=== PATIENT | female | born 1985 | race Caucasian/White ===

== ENCOUNTER → 2018-06-30 | Outpatient (CLI) | payer OTHER ==
[~2018-06-30] MED LIST: FLU60SYR36 IM; PREN-127 PO
[2018-06-30 11:40] LABS: PLATELET COUNT, AUTOMATED 289 K/uL (150-450)
== END ==
LOC: LAB 08:39
PROVIDERS: ATTEND Obstetrics & Gynecology
DX: Z34.91 Encounter for supervision of normal pregnancy, unspecified, first trimester (principal)
CPT/HCPCS: 36415; 81001; 85025; 86592; 86703; 86762; 86850; 86900; 86901; 87088; 87340

== ENCOUNTER → 2018-10-16 | Outpatient (CLI) | payer OTHER ==
--- NOTE | 2018-10-16 13:47 | RADIOLOGY IMAGING REPORT ---
FACILITY: [facility] - [place] PATIENT NAME: Amanda Magaña : 1985 MR: [id number] V: [id number] EXAM DATE: ORDERING PHYSICIAN: PHIL BLANC TECHNOLOGIST: Location: [facility] - [place] Patient: Amanda Magaña : 1985 Visit/Account:[id number] Date of Sevice: 10/16/2018 EXAMINATION: Ultrasound transabdominal OB > 14 weeks with anatomic evaluation HISTORY: 20 weeks survey COMPARISON: None. TECHNIQUE: Transabdominal imaging was performed for assessment of the fetus and maternal pelvic structures. T ransvaginal imaging was not performed. FINDINGS: Placenta: Posterior without previa. Uterus: Gravid, otherwise normal Cervix: Long and closed. Maternal Ovaries: Not visualized. Maternal and other adnexa findings: Not visualized Intrauterine gestations: One. presentation: Variable heart rate: Normal and regular at 158 bpm Amniotic fluid index: 12.7 cm Largest amniotic fluid pocket: 3.89 cm Gestational Parameters: BPD: 4.98 cm 21 weeks/ one days, 84% HC: 18.61 cm 21 weeks/ zero days, 77% AC: 15.44 cm 20 weeks/ five days, 61% FL: 3.39 cm 20 weeks/ five days, 60% Average ultrasound age (AUA): 21 weeks/zero days, CARLOS 02/26/2019 Estimated gestational age by CARLOS: 20 weeks/one days, CARLOS 03/04/2019 Estimated weight (EFW): 370 grams +/- 54 grams EFW for CARLOS: 75 percentile Anatomic Survey: Intracranial structures, 4-chamber heart, stomach, kidneys, urinary bladder, spine, 3-vessel cord and cord insertion are unremarkable. Two upper and two lower extremities visualized. Cardiac ventricula r outflow tracts, palate and lips are unremarkable in appearance. IMPRESSION: Single viable fetus in varied presentation with an estimated gestational age by measurem ents of 21 weeks and zero days. Estimated gestational age by LMP is 20 weeks and one day. Estimated weight 370 g consistent with the 75th percentile Report Dictated By: Shreya Dick MD at 10/16/2018 1:33 PM Report E-Signed By: Shreya Dick MD at 10/16/2018 1:42 PM WSN:[email or web address]
== END ==
LOC: RAD 07:59
PROVIDERS: ATTEND Obstetrics & Gynecology
DX: Z02.9 Encounter for administrative examinations, unspecified (principal)

== ENCOUNTER → 2018-12-14 | Outpatient (CLI) | payer OTHER ==
[~2018-12-14] MED LIST changes: +DIPH0.5S2 IM
[2018-12-14 09:46] LABS: PLATELET COUNT, AUTOMATED 263 K/uL (150-450)
== END ==
LOC: LAB 08:42
PROVIDERS: ATTEND Obstetrics & Gynecology
DX: Z34.92 Encounter for supervision of normal pregnancy, unspecified, second trimester (principal)
CPT/HCPCS: 36415; 82950; 85025

== ENCOUNTER → 2019-02-01 | Outpatient (CLI) | payer OTHER ==
--- NOTE | 2019-02-01 10:02 | RADIOLOGY IMAGING REPORT ---
FACILITY: [facility] PATIENT NAME: Amanda Magaña : 1985 MR: [id number] V: [id number] EXAM DATE: ORDERING PHYSICIAN: PHIL BLANC TECHNOLOGIST: Location: [facility] - [place] Patient: Amanda Magaña : 1985 Visit/Account:[id number] Date of Sevice: 02/01/2019 [facility] [place] HISTORY: Size greater than dates growth and AFT COMPARISON: 10/16/2018 FINDINGS: Intrauterine gestations: 1 presentation: Vertex heart rate: 129 (bpm Amniotic fluid volume: UNRULY 9.9 cm; Largest amniotic fluid pocket 4.8 cm Placenta: Posterior fundal No placenta previa or retroplacental hemorrhage. Uterus: Gravid, otherwise normal Maternal adnexa: Negative Cervix: Closed Gestational Parameters: BPD: 9 cm; 36 weeks/ 4 days/80th percentile HC: 32.1 cm; 36 weeks/ 2 days/33rd percentile AC: 32.6 cm; 36 weeks/ 4 days/83rd percentile FL: 7.1 cm; 36 weeks/ 5 days/70th percentile Average ultrasound age (AUA): 36 weeks/ 4 days Estimated weight (EFW): 2959 grams +/- 432 grams. 75th percentile IMPRESSION: 1. IUP of 36 weeks four days. CARLOS of 02/25/2019. This correlates well with the previous ultrasound on 10/16/2018 that had an CARLOS calculated at 02/26/2019 . Had fetus has remained in the 75th percentile since the study from 10/16/2018 Report Dictated By: Chava Fraire MD at 02/01/2019 9:47 AM Report E-Signed By: Chava Fraire MD at 02/01/2019 9:54 AM WSN:[email or web address]
== END ==
LOC: RAD 08:21
PROVIDERS: ATTEND Obstetrics & Gynecology
DX: O26.843 Uterine size-date discrepancy, third trimester (principal); Z3A.36 36 weeks gestation of pregnancy

== ENCOUNTER 2019-02-08 16:28 | Inpatient (IN) | payer OTHER ==
[~2019-02-08] VITALS: Ht 177.8 cm; Wt 100.2 kg
[2019-02-20 17:49] VITALS: BP 136/78; Ht 177.8 cm; Wt 100.2 kg
[2019-02-20] MEDS ORDERED: FAMOTIDINE(*) 20MG/50ML PREMIX 50 ML IVPB PRN (19:43)
[2019-02-20] MEDS ORDERED: OXYTOCIN 30 UNIT/NS 500 ML 500 ML IV PRN ×2 (19:43→23:21)
[2019-02-20] MEDS ORDERED: LIDOCAINE 1% LOCAL 300 MG/30ML INJ PRN (19:45)
[2019-02-20] MEDS ORDERED: fentaNYL CITR 100 MCG/2 ML AMP IVP PRN (19:45)
[2019-02-20] MEDS ORDERED: LIDOCAINE/SOD BICARB 8.4% SYR SC PRN (19:45)
[2019-02-20] MEDS ORDERED: METOCLOPRAMIDE 10 MG/2 ML SDV IVP PRN (19:45)
[2019-02-20] MEDS ORDERED: ACETAMINOPHEN 325 MG TAB PO PRN (19:50)
[2019-02-20] MEDS ORDERED: BUPIVACAINE 0.25% MPF INJ EPI PRN (19:50)
[2019-02-20] MEDS ORDERED: FENTANYL/ROPIVACAINE 100 ML BAG EPI PRN (19:50)
[2019-02-20] MEDS ORDERED: ONDANSETRON 4 MG/2 ML VIAL IVP PRN (19:50)
[2019-02-20] MEDS ORDERED: LIDOCAINE/PF 2% 200MG/10ML AMP 200 MG/10 ML AMPUL EPI PRN (19:50)
[2019-02-20] MEDS ORDERED: LIDO/EPI 2% MPF 1:200,000 20ML EPI PRN (19:50)
[2019-02-20] MEDS ORDERED: BUPIVACAINE 0.5% INJ 30ML VIAL EPI PRN (19:50)
[2019-02-20] MEDS ORDERED: fentaNYL CITR 100 MCG/2 ML AMP IT PRN (19:50)
[2019-02-20] MEDS: LR(*) 1000 ML BAG 1,000 ML IV SCH ×2 (20:17→21:27)
[2019-02-20 20:35] LABS: PLATELET COUNT, AUTOMATED 216 K/uL (150-450)
--- NOTE | 2019-02-20 20:35 | History & Physical ---
History of Present Illness Age of Patient: 33 : 2 Para or TPAL: 1 EDC per LMP: Mar 04, 2019 Estimated Gestational Age: 38.2 Chief Complaint Pt reports that contractions started at about 24 hours ago, but became strong and regular at 2pm today.. She reports good FM no LOF or VB. She denies STAFFORD, vision changes and RUQ pain. She had a planned IOL for Tuesday, so she is very excited to have gone into labor on her own. She is requesting and epidural and AROM after. History Patient's Blood Type: A Positive Rubella Status: Immune Group B Strep Screen: Negative Allergies: Coded Allergies: Penicillins (Unverified Allergy, Intermediate, HIVES, 06/30/18) Uncoded Allergies: metal (Allergy, Unknown, 03/30/18) Social History: Denies etoh, smoking and drug use including marijuana Family History: FH: cancer FATHER paternal grandfather FH: diabetes mellitus paternal grandfather FH: heart disease paternal grandmother FH: hypertension paternal grandfather maternal grandfater paternal grandmother maternal grandmother FH: stroke maternal grandfater Med Rec Home Meds Reported Medications Vits W-Ca,Fe,Fa(<1MG) ( VITAMINS) 1 Each Tablet, 1 EACH PO DAILY, TAB 06/30/18 Review of Systems Eyes: No Vision Change Cardiovascular: No Chest Pain Respiratory: No Shortness of Breath Gastrointestinal: No Nausea, No Vomiting, No Diarrhea, No Constipation; Abdominal Pain (uterine contractions) Genitourinary: No Dysuria Psychiatric: No Depression, No Anxiety Exam General Exam Vital Signs Vital Signs Date Time Temp Pulse Resp B/P (MAP) Pulse Ox O2 Delivery O2 Flow Rate FiO2 02/20/19 17:49 97.3 91 18 136/78 (97) 94 Room Air General Apperance: Alert/Awake/No Acute Distress Neuro: No Gross deficits Eyes: Normal Extraocular Movement & Vison, PERRLA ENT: Normal Cardiovascular: Regular Rate and Rhythm Respiratory: No Respiratory Distress Abdomen: Soft, Non-Tender, Non-Distended, Gravid - Non-Tender, RUQ Non-Tender : Normal Musculoskeletal: No Weakness/Pain Extremities: No Cyanosis,Clubbing or Edema Integumentary: Skin Intact without Lesions or Rash Psychological: Alert & Oriented X3, Appropriate Mood & Affect Cervical Dialation: 5 Cervical Effacement (%): 80 Cervical Consistency: Soft Cervical Position: Posterior Station: -2 Presentation: Vertex Uterine Contractions(Q min): 4 Uterine Contraction Strength: Moderate UC Resting Tone: Soft Fetus Feeling Movement?: Yes Heart Tones: 125 Heart Tone Variabilty: Moderate FHT Accelerations: Present, 15X15 FHT Decelerations: None Medical Decision Making Data Points Result Diagram: 02/20/192011 VTE Prophylasis: Adult Pharmacological Contraindicati: Pt at Low Risk for VTE Mechanical Contraindications: Pt at Low Risk for VTE Assessment and Plan Hospital Day: 1 PERFUMER Assessment: Stable PERFUMER Plan: Routine Labor Care Problems: (1) Uterine contractions at greater than 20 weeks of gestation Onset Date: ~ 02/15/2019 Status: Acute Assessment & Plan: MARY is a 33 y.o. at 38w2d wks with an Estimated Date of Delivery: 03/04/19 dated by LMP and first trimester US Labor state: Approaching active labor with adequate cervical change in 2 hours from observation status. Plan to admit to L&D for labor. Start IV, and draw labs . Pt requesting an epidural now. PURCHASING MANAGER/SALES called and aware. Pt requesting AROM after epidural placement. Reviewed R/B/A with patient and and they desire AROM to progress labor. Encourage extreme lateral positions with the peanut ball to encourage descent after epidural and AROM well-being: Category I FHT: Continuous monitoring for epidural Maternal well-being: VSS, normotensive and afebrile, membranes intact PNL: GBS neg, Type/Rh A+, rubella immune Pain Management: Plans for and requesting epidural Feed: Breast c/b: * Hx macrosomia baby at 9lbs 12oz with VAVD and 3rd degree laceration. At 36 weeks this baby measuring 76%tile * Had steroids at 29 weeks for PTL * ASCUS +HR HPV: Colpo showed CIN1-2 at 12 weeks. Will plan to repeat colpo with BX Anticipate labor progression and , re-evaluate in 2-3 hours or prn PHIL BLANC CNM Feb 20, 2019 20:35
[2019-02-20] MEDS ORDERED: ePHEDrine 25 MG/5 ML DISP.SYR IVP ONE ×2 (20:51→22:44)
--- NOTE | 2019-02-20 21:38 | Anesthesia OB Pre-Anes Eval ---
History of Present Illness Anesthesia Start Date: Feb 20, 2019 Anesthesia Start Time: 20:49 OB Anesthesia Diagnosis: spontaneous labor EDC: Mar 04, 2019 : 2 Para: 1 Vital Signs: Epidural anesthesia risks, complications and benefits explained to patient's satisfaction for labor and vaginal delivery and/or section. Vital Signs Date Time Temp Pulse Resp B/P (MAP) Pulse Ox O2 Delivery O2 Flow Rate FiO2 02/20/19 17:49 97.3 91 18 136/78 (97) 94 Room Air Pain Ratin Heart Tones: 132 Height (Inches): 70.00 Weight (Pounds): 221 BMI (kg/m2): 32 Past Medical History Medical History: no pertinent history Surgical History: other ([place] teeth) Previous Anesthesia: general, epidural Attended Childbirth Classes?: No Hx Anesthesia Reactions: No Hx Family Anesthesia Reaction: No Home Meds Reported Medications Vits W-Ca,Fe,Fa(<1MG) ( VITAMINS) 1 Each Tablet, 1 EACH PO DAILY, TAB 06/30/18 Allergies: Coded Allergies: Penicillins (Unverified Allergy, Intermediate, HIVES, 06/30/18) Uncoded Allergies: metal (Allergy, Unknown, 03/30/18) Anesthesia OB ROS Neurological: No migraines/headaches, No seizures, No neuropathy, No other Eyes ROS: contacts out ENT: Denies Tooth caps, Denies Loose teeth, Denies Chipped teeth, Denies Dentures, Denies Bridges, Denies Retainers, Denies Veneers, Denies Implants, Denies Tongue ring, Denies Other Pulmonary: No asthma, No smoker (pks/day/yrs), No other Airway Class: ll Cardiovascular ROS: No edema, No arrhythmia, No other GI ROS: clear liquids Last Solids Date: Feb 20, 2019 Last Solids Time: 12:00 ROS: No Herpes, No STD(s), No Liver Disease, No Renal Disease, No Other Endocrine ROS: No diabetes, No gestational diabetes, No thyroid disorder, No other Musculoskeletal ROS: low back pain; No low back injury, No scoliosis, No other ASA Classification: 2 Assessment and Plan Anesthesia Plan: LEB Assessment: Patient related that she wants to be less numb, than she was with her last epidural. She was unable to lift her legs or feel her contractions. She is vomiting occasionally, with her labor pains. She was 7/10 pain, prior to voiding, then 5/10 just prior to epidural. ABHISHEK Gale, is present and supportive. GONZALEZ ALCAZAR AGENT PRODUCER Feb 20, 2019 21:38
--- NOTE | 2019-02-20 23:25 | Labor Progress Note ---
Labor Subjective Progress Notes Subjective Pt had thought her water broke during her epidural, but she has has not leaking fluid since that time. She feels comfortable with the epidural except for some pain on the right side. Feeling Movement?: Yes Vaginal Discharge/Fluid: Clear Fluid, Small Amount Labor Pain: Mild (right side only) Neurological: No Headache Eyes: No Visual Disturbances Labor Objective Vital Signs Vital Signs Date Time Temp Pulse Resp B/P (MAP) Pulse Ox O2 Delivery O2 Flow Rate FiO2 02/20/19 17:49 97.3 91 18 136/78 (97) 94 Room Air Vaginal Discharge/Fluid?: Clear Fluid, Bloody Fluid, Small Amount Cervical Dialation: 6 Cervical Effacement (%): 70 Cervical Consistency: Moderate Cervical Position: Posterior Station: -1 Presentation: Vertex Uterine Contraction Strength: Strong UC Resting Tone: Soft Fetus Heart Tone Variabilty: Moderate FHT Accelerations: Present, 15X15 FHT Decelerations: None FHT Category: I General Exam General Appearance: Alert/Awake/No Acute Distress ENT: Normal Cardiovascular: Normal Rhythm & Peripheral Pulses Respiratory: No Respiratory Distress Abdomen: Gravid - Non-Tender, Gravid - Tender Psychological: Alert & Oriented X3, Appropriate Mood & Affect Other Result Diagram: 02/20/192011 Assessment and Plan CRYOGENICS REPAIRER Assessment: Stable CRYOGENICS REPAIRER Plan: Routine Labor Care Problems: (1) Uterine contractions at greater than 20 weeks of gestation Onset Date: ~ 02/15/2019 Status: Acute Assessment & Plan: MARY is a 33 y.o. at 38w2d wks with an Estimated Date of Delivery: 03/04/19 dated by LMP and first trimester US Labor state: Approaching active labor, but minimal cervical change since last check. Recommend AROM since no SROM earlier to progress labor. Reviewed R/B/A with patient and and they desire AROM to progress labor. Encourage ext ivis lateral positions with the peanut ball to encourage descent well-being: Category I FHT: Continuous monitoring for epidural Maternal well-being: VSS, normotensive and afebrile, AROM small clear fluid PNL: GBS neg, Type/Rh A+, rubella immune Pain Management: Comfortable with epidural Feed: Breast c/b: * Hx macrosomia baby at 9lbs 12oz with VAVD and 3rd degree laceration. At 36 weeks this baby measuring 76%tile * Had steroids at 29 weeks for PTL * ASCUS +HR HPV: Colpo showed CIN1-2 at 12 weeks. Will plan to repeat colpo with BX Anticipate labor progression and , re-evaluate in 2-3 hours or prn PHIL BLANC CNM Feb 20, 2019 23:25
[2019-02-21] VITALS (10 sets, daily range): BP systolic 96–120; BP diastolic 54–68
[2019-02-21] MEDS: LR(*) 1000 ML BAG 1,000 ML IV SCH ×2 (02:21→04:04)
--- NOTE | 2019-02-21 03:36 | Labor Progress Note ---
Labor Subjective Progress Notes Subjective Pt is feeling exhausted after pushing for 1.5 hours. She feels rectal pressure and the urge to push. She is wondering when we are getting the vacuum out since she has that with her last baby. Feeling Movement?: Yes Vaginal Discharge/Fluid: Bloody Show, Clear Fluid Labor Pain: Comfortable Neurological: No Headache Eyes: No Visual Disturbances Labor Objective Vital Signs Vital Signs Date Time Temp Pulse Resp B/P (MAP) Pulse Ox O2 Delivery O2 Flow Rate FiO2 02/20/19 17:49 97.3 91 18 136/78 (97) 94 Room Air Vaginal Discharge/Fluid?: Bloody Show, Clear Fluid Cervical Dialation: 10 Cervical Effacement (%): 100 Cervical Consistency: Soft Cervical Position: Anterior Station: +1 Presentation: Vertex Uterine Contractions(Q min): 3 Uterine Contraction Strength: Strong UC Resting Tone: Soft Fetus Estimated Weight(grams): 3500 Heart Tones: 125 Heart Tone Variabilty: Moderate FHT Accelerations: 15X15 FHT Decelerations: Variable FHT Category: II General Exam General Appearance: Alert/Awake/No Acute Distress ENT: Normal Respiratory: No Respiratory Distress Abdomen: Gravid - Non-Tender, RUQ Non-Tender : Normal Integumentary: Skin Intact without Lesions or Rash Psychological: Alert & Oriented X3, Appropriate Mood & Affect Other Result Diagram: 02/20/192011 Assessment and Plan MARKETING INFORMATION COORDINATOR Assessment: Stable MARKETING INFORMATION COORDINATOR Plan: Routine Labor Care Problems: (1) Uterine contractions at greater than 20 weeks of gestation Onset Date: ~ 02/15/2019 Status: Acute Assessment & Plan: MARY is a 33 y.o. at 38w3d wks with an Estimated Date of Delivery: 03/04/19 dated by LMP and first trimester US Labor state: Second stage labor, Pt coached on pushing and actively pushing x 1.5 hours with minimal descent in various positions. Dr. Minor notified of repetitive decelerations and now maternal exhaustion. Plan to rest for 30 minutes and then continue pushing. If no progress or baby not tolerating labor consult for an assist. well-being: Category II FHT for repetitive variables: FSE placed as difficult to monitor baby. Continuous monitoring for CAT II and epidural Maternal well-being: VSS, normotensive and afebrile, AROM at 23:04 for clear small fluid PNL: GBS neg, Type/Rh A+, rubella immune Pain Management: Comfortable with epidural Feed: Breast c/b: * Hx macrosomia baby at 9lbs 12oz with VAVD and 3rd degree laceration. At 36 weeks this baby measuring 76%tile * Had steroids at 29 weeks for PTL * ASCUS +HR HPV: Colpo showed CIN1-2 at 12 weeks. Will plan to repeat colpo post with BX Anticipate , re-evaluate in 30 minutes hours or prn PHIL BLANC CNM Feb 21, 2019 03:36
--- NOTE | 2019-02-21 04:51 | Anesthesia Progress Note ---
Progress/Maintenance Anesthesia Note Date: Feb 21, 2019 Anesthesia Note Time: 02:45 Pain Intensity: 2 Pump: On Pump Rate (ML/HR): 8 Sensory Level: T8 bilaterally to cold Motor Level: Bending Knees-Bilateral Dilatation: 10 Position: Semi-Fowlers Anesthesia Treatment: increased pressure discomfort with transition, pt positioned for pushing. Assessment and Plan Anesthesia Plan: LEB Assessment: Alert, calm. VSS. [facility] 136 GONZALEZ ALCAZAR CRNA Feb 21, 2019 04:51
[2019-02-21] MEDS ORDERED: BENZOCAINE 20% 60 ML BTL TP PRN (04:55)
[2019-02-21] MEDS ORDERED: LANOLIN OINT 7 GM TUBE TP PRN (04:55)
[2019-02-21] MEDS ORDERED: APAP/HYDROCODONE 325/5 TAB PO PRN (04:55)
[2019-02-21] MEDS ORDERED: GLYCERIN/WITCH HAZEL LEAF 1 PK TOP PRN (04:55)
[2019-02-21] MEDS ORDERED: ACETAMINOPHEN 325 MG TAB PO PRN (04:55)
[2019-02-21] MEDS ORDERED: HYDROCORTISONE 2.5% CR 30GM TB PR PRN (04:55)
[2019-02-21] MEDS ORDERED: MAGNESIUM HYDROXIDE* 30ML UDCP PO PRN (04:55)
--- NOTE | 2019-02-21 04:56 | Labor Progress Note ---
Labor Subjective Progress Notes Subjective I was called to evaluate prolong decelerations with pushing and minimal change in station. Mom getting tired as she has been pushing for 1.5 hrs. Feeling Movement?: Yes Vaginal Discharge/Fluid: Clear Fluid Labor Pain: Mild Neurological: No Headache, No Other Eyes: No Visual Disturbances Labor Objective Vital Signs Vital Signs Date Time Temp Pulse Resp B/P (MAP) Pulse Ox O2 Delivery O2 Flow Rate FiO2 02/20/19 17:49 97.3 91 18 136/78 (97) 94 Room Air Vaginal Discharge/Fluid?: Clear Fluid Cervical Dialation: 10 Cervical Effacement (%): 100 Cervical Consistency: Soft Cervical Position: Anterior Station: +1 Presentation: Vertex (OP) Uterine Contractions(Q min): 2 Uterine Contraction Strength: Mild Fetus Heart Tones: 120 Heart Tone Variabilty: Moderate FHT Accelerations: 15X15 FHT Decelerations: Variable FHT Category: II Other Result Diagram: 02/20/192011 Assessment and Plan ONLINE CONTENT COORDINATOR Assessment: Stable ONLINE CONTENT COORDINATOR Plan: Routine Post- Care Problems: (1) Uterine contractions at greater than 20 weeks of gestation Onset Date: ~ 02/15/2019 Status: Acute Assessment & Plan: Pt has been pushing for 1.5 hours with repetitive decelerations. Recommended 30 minute rest for mom which had already taken place. Upon me entering baby was +3 station with pushing with great decent. D iscussed vacuum with patient. She pushed for three more contractions and delivered with Jane North CNM with out a vacuum. I was present for delivery and repair of a 2nd degree laceration. ABDULAZIZ ARREOLA DO Feb 21, 2019 04:56
--- NOTE | 2019-02-21 04:57 | OB Delivery Note ---
Delivery Note Vaginal Delivery Type: Spont. Vaginal Delivery Delivery Date: Feb 21, 2019 Delivery Time: 04:22 Estimated Gestational Age(wks): 38.2 Delivery Anesthesia: Epidural Sex: Male [place] Apgars: 1 Minute, 5 Minute Repair Needed: Laceration Estimated Blood Loss: 400 Delivery Complications: Laceration Notes: Pt was admitted to the family care unit on 02/20/19 at 1706 in early labor. Cervical exam on admission was 3-4/80/-2. She had AROM on 02/20/19 at 2304, clear small fluid with pitocin sta rted at that time for augmentation. Pt was GBS neg. FHR CAT I primarily throughout first stage. Pt utilized continuous lumbar epidural primarily for pain management. Pt was completely dilated on 02/21/19 at 0142 and pt began pushing shortly after that time. After 1.5 hours of pushing there was minimal descent, maternal exhaustion, and repetitive prolonged variable decelerations At that time Dr. Minor was calledfor consult. It was recommended that the patient rest from pushing for 30 minutes and then begin pushing again. Variable decelerations continued to occur during rest, but return to baseline was more rapid. Dr Minor aware. Continued to push with excellent effort and descent. Dr Minor present for possible vacuum assist. At 0422 pt had a NSVB of live male , APGARS 8/9 weighing 6lbs 3oz. The head delivered spontaneously in the OP position and restituted LOP with no nuchal cord. The anterior shoulder was delivered a traumatically and the posterior shoulder followed. Body delivered easily. Face was wiped with nose and bulb suction and then placed on the maternal abdomen. The infant was dried and stimulated and noted to have a spontaneous cry and spontaneous movement of all 4 extremities. Cord was clamped X 2 by CNM after 3 minutes and cut by patient's spouse. Mother was in SF position. At 0426 the placenta and membranes delivered spontaneous and intact with a 3 vessel cord after gentle downward traction and maternal push. 30 units of Pitocin was placed in 500cc IV to firm the uterus and started immediately after placenta delivery. Upon inspection of the perineum a second degree laceration was noted and repaired using 3.0 Vicryl under POLA. Hemostasis observed. EBL 400 with fundus firm with minimal bleeding. Mom and baby were left in stable condition. "I personally examined the patient and there are no unintended foreign objects in the vagina, and all sponge, lap, and needle counts were correct Caitlin North CNM was present throughout the entire delivery as well as Dr. Jose Elias Minor. CAITLIN NORTH CNM Feb 21, 2019 04:57
--- NOTE | 2019-02-21 05:05 | Anesthesia Progress Note ---
Progress/Maintenance Anesthesia Note Date: Feb 21, 2019 Pain Intensity: 0 Pump: Off (447) Motor Level: Bending Knees-Bilateral Assessment and Plan Anesthesia Plan: LEB Assessment: Delivery of OP positioned, active, crying male. @nd degree tear along scarring from prior delivery. Tear repair with epidural pump on and after pump bolus x1, until 8, when repair complete pump off. Pt with VSS. Anesthesia Stop Day: Feb 21, 2019 Anesthesia Stop Time: 04:48 GONZALEZ ALCAZAR CRNA Feb 21, 2019 05:05
--- NOTE | 2019-02-21 06:45 | Anesthesia Progress Note ---
Progress/Maintenance Anesthesia Note Date: Feb 21, 2019 Anesthesia Note Time: 06:38 Pain Intensity: 2 Pump: Off Motor Level: Bending Knees-Bilateral (Has not ambulated yet. ) Assessment and Plan Anesthesia Plan: LEB Assessment: In bed with at breast. VSS. able to lean forward for epidural removal. Sterile bandaid placed. Epidural Catheter Removal: Removed Catheter Intact, Yes, Removed by: (Gonzalez Roger CRNA) Removal Date: Feb 21, 2019 Removal Time: 06:35 GONZALEZ ROGER CRNA Feb 21, 2019 06:45
[2019-02-21] MEDS: DOCUSATE CALCIUM 240 MG CAP PO SCH ×2 (08:12→20:27)
[2019-02-21] MEDS ORDERED: IBUPROFEN 800 MG TAB PO SCH (09:00)
[2019-02-21] MEDS: IBUPROFEN 800 MG TAB PO SCH ×2 (15:45→23:22)
--- NOTE | 2019-02-21 23:03 | Anesthesia Post Eval Note ---
Anesthesia Post Eval Note Vital Signs Date Time Temp Pulse Resp B/P (MAP) Pulse Ox O2 Delivery O2 Flow Rate FiO2 02/21/19 19:45 97.6 89 16 120/63 (82) 95 Room Air Hematology Test 02/20/19 20:12 White Blood Count 10.6 k/uL (4.5-11.0) Red Blood Count 4.31 M/uL (4.17-5.56) Hemoglobin 13.3 g/dL (12.0-16.0) Hematocrit 39.4 % (34.0-47.0) Mean Corpuscular Volume 91.4 fL (80.0-96.0) Mean Corpuscular Hemoglobin 30.9 pg (26.0-33.0) Mean Corpuscular Hemoglobin Concent 33.8 g/dL (32.0-36.0) Red Cell Distribution Width 13.1 % (11.5-14.5) Platelet Count 216 K/uL (150-450) Mean Platelet Volume 8.4 fL (7.2-11.1) Neutrophils (%) (Auto) 77.2 % (39.4-72.5) H Lymphocytes (%) (Auto) 16.7 % (17.6-49.6) L Monocytes (%) (Auto) 4.8 % (4.1-12.4) Eosinophils (%) (Auto) 0.5 % (0.4-6.7) Basophils (%) (Auto) 0.8 % (0.3-1.4) Nucleated RBC Relative Count (auto) 0.0 /100WBC Neutrophils # (Auto) 8.1 K/uL (2.0-7.4) H Lymphocytes # (Auto) 1.8 K/uL (1.3-3.6) Monocytes # (Auto) 0.5 K/uL (0.3-1.0) Eosinophils # (Auto) 0.1 K/uL (0.0-0.5) Basophils # (Auto) 0.1 K/uL (0.0-0.1) Nucleated RBC Absolute Count (auto) 0.00 K/uL Tolerated procedure well without apparent anesthetic complications. LP site clear, no redness or edema. Denies headache or any residual paresthesia. Vital Signs Stable, Patient comfortable and condition stable. Pt able to participate in Eval: Yes Cardiovascular Status: Satisfactory Respiratory Status: Satisfactory Pain Managment: Satisfactory PO Nausea/Vomiting: Satisfactory Temperature Management: Satisfactory Mental Status: Satisfactory, Alert, Oriented X3 Post-Op Hydration Status: Satisfactory, Tolerating PO Well, Voiding w/o Difficulty Anesthesia Type: GONZALEZ BURCH CRNA Feb 21, 2019 23:03
[2019-02-22 03:20] VITALS: BP 107/66
[2019-02-22 08:00] VITALS: BP 114/74
--- NOTE | 2019-02-22 08:01 | OB/GYN Progress Note ---
OB Subjective Progress Notes GI: POS Flatus; NEG Nausea, NEG Vomiting, NEG Bowel Movement : Voiding Well, Vaginal Bleeding, Scant Pain: Mild Neurological: No Headache OB Objective Physical Exam Vital Signs Date Time Temp Pulse Resp B/P (MAP) Pulse Ox O2 Delivery O2 Flow Rate FiO2 02/22/19 03:20 97.3 75 14 107/66 (80) 95 Room Air Intake and Output 02/22/19 07:03 Intake Total 240 ml Output Total 1200 ml Balance -960 ml Intake Oral 240 ml Output Urine Total 1200 ml General Appearance: Alert/Awake/No Acute Distress Neurological: No Gross deficits ENT: Normal Cardiovascular: Normal Rhythm & Peripheral Pulses Respiratory: No Respiratory Distress Abdomen: Soft, Non-Tender, Non-Distended, Fundus Firm : Normal Extremities: No Cyanosis,Clubbing or Edema Integumentary: Skin Intact without Lesions or Rash Psychological: Alert & Oriented X3, Appropriate Mood & Affect Result Diagram: 02/22/19 0614 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 Routine instructions given. ZULAY PAN DO Feb 22, 2019 08:01
--- NOTE | 2019-02-22 08:02 | OB/GYN Discharge Summary ---
Discharge Summary Reason for Hosp/Final Diag: (1) Uterine contractions at greater than 20 weeks of gestation Onset Date: ~ 02/15/2019 Status: Resolved (2) (spontaneous vaginal delivery) Status: Resolved Lates Vital Signs Vital Signs Date Time Temp Pulse Resp B/P (MAP) Pulse Ox O2 Delivery O2 Flow Rate FiO2 02/22/19 03:20 97.3 75 14 107/66 (80) 95 Room Air Weight (Pounds): 221 Result Diagram: 02/22/1914 Condition: Improved Discharge: Home, Self Retirement Meds Reported Medications Vits W-Ca,Fe,Fa(<1MG) ( VITAMINS) 1 Each Tablet, 1 EACH PO DAILY, TAB 06/30/18 Follow up with: [facility] [phone] (2 weeks with Jane North CNM or Dr. Barbosa ) Discharge Diet: As Tolerates Discharge Activity: As Tolerates, No Heavy Lifting x 6 wks, Pelvic Rest (no intercourse, tampons or douching for 6 weeks. ) ZULAY BARBOSA DO Feb 22, 2019 08:02
[2019-02-22] MEDS ORDERED: IBUP800T37 PO (08:04)
[2019-02-22] MEDS ORDERED: DOCU240C67 PO (08:04)
[2019-02-22] MEDS: IBUPROFEN 800 MG TAB PO SCH (08:51)
[2019-02-22] MEDS: DOCUSATE CALCIUM 240 MG CAP PO SCH (08:51)
== END 2019-02-22 09:53 | disposition home or self-care (01) | DRG 807 ==
LOC: UNDOADMIN 02-20 17:00 → OB 02-20 17:00
PROVIDERS: ADMIT Student in an Organized Health Care Education/Training Program; ATTEND Student in an Organized Health Care Education/Training Program
PROC: 10E0XZZ Delivery of Products of Conception, External Approach (ICD-10-PCS; principal; 2019-02-21)
PROC: 0KQM0ZZ Repair Perineum Muscle, Open Approach (ICD-10-PCS; 2019-02-21)
PROC: 10907ZC Drainage of Amniotic Fluid, Therapeutic from Products of Conception, Via Natural or Artificial Opening (ICD-10-PCS; 2019-02-21)
PROC: 4A1H74Z Monitoring of Products of Conception, Cardiac Electrical Activity, Via Natural or Artificial Opening (ICD-10-PCS; 2019-02-21)
PROC: 10H073Z Insertion of Monitoring Electrode into Products of Conception, Via Natural or Artificial Opening (ICD-10-PCS; 2019-02-21)
DX: O76 Abnormality in fetal heart rate and rhythm complicating labor and delivery (principal); Z37.0 Single live birth; O70.1 Second degree perineal laceration during delivery; O75.81 Maternal exhaustion complicating labor and delivery; Z3A.38 38 weeks gestation of pregnancy; Z88.0 Allergy status to penicillin
CPT/HCPCS: 36415; 85025; 85027; 86850; 86900; 86901; J2405; J2590; J3010; J7120; S0020